=== PATIENT | female | born 1980 | race Caucasian/White ===

== ENCOUNTER 2016-11-16 04:52 | Observation (INO) | payer MEDICAID ==
[2016-11-16] MEDS ORDERED: Sodium Chloride 0.9% 1000 ML 1,000 ML IV STA (06:22)
[2016-11-16] MEDS ORDERED: Sodium Chloride 0.9% 1000 ML 1,000 ML ONE (06:27)
[2016-11-16] MEDS ORDERED: Lactated Ringers 1,000 ML IV SCH (07:30)
[2016-11-16 08:51] LABS: COMPLETE URINE MICROSCOPIC? YES; Collection Type CLEAN CATCH
[2016-11-16 08:57] LABS: Bacteria MODERATE /HPF (NEGATIVE); CALCIUM OXALATE CRYSTALS 0-2 /HPF (NEGATIVE); Epithelial Cells MANY /HPF (FEW); Mucus MANY /HPF (NEGATIVE)
[2016-11-16] MEDS ORDERED: Celestone Soluspan 6MG/ML IM SCH (09:30)
--- NOTE | 2016-11-16 10:08 | XRAY ---
Indication: Evaluate cervical length. Comparison: None Limited transvaginal pelvic sonogram was performed to evaluate the cervical length. Cervix is closed and measures 3.05 cm in length.
[2016-11-16 14:27] VITALS: BP 115/63; PULSE 96
== END 2016-11-16 14:40 | disposition home or self-care (01) ==
LOC: OB 04:52
PROVIDERS: ADMIT Family Medicine; ATTEND Family Medicine
DX: Z34.83 Encounter for supervision of other normal pregnancy, third trimester (principal)
CPT/HCPCS: 76815; 80307; 81000; G0378; J0702

== ENCOUNTER 2016-11-20 17:45 | Observation (INO) | payer MEDICAID ==
[2016-11-20 18:06] VITALS: BP 116/75; PULSE 115; O2SAT 97
[2016-11-20 19:34] LABS: BASOPHIL % 0.1 % (0.0-0.4); Eosinophil % 0.8 % (0.00-5.0); Granulocytes % 72.5 % (36.0-66.0); Lymphocytes % 19.3 % (24.0-44.0); Mean Cell Volume 82.8 fl (78-100); Mean Corpuscular Hemoglobin 27.1 pg (26-32); Monocytes % 7.3 % (0.0-12.0); Platelet Count 177 K/mm3 (150-450); Red Blood Count 4.13 M/mm3 (4.1-5.4); Red Cell Distribution Width 20.5 % (11.5-14.0); White Blood Count 7.6 K/mm3 (4.0-10.5)
[2016-11-20 19:41] LABS: Collection Type CLEAN CATCH
[2016-11-20 19:42] LABS: COMPLETE URINE MICROSCOPIC? YES
[2016-11-20 19:43] LABS: Bacteria FEW /HPF (NEGATIVE); Epithelial Cells FEW /HPF (FEW)
[2016-11-20] MEDS ORDERED: Rocephin 1000 MG INJ IM ONE (19:55)
[2016-11-20] MEDS ORDERED: Rocephin 1000 MG INJ ONE (20:01)
[2016-11-20] MEDS ORDERED: XYLOCAINE 1% HCL 20 ML MDV ONE (20:05)
[2016-11-20] MEDS ORDERED: XYLOCAINE 1% HCL 20 ML MDV IJ ONE (20:12)
== END 2016-11-20 20:27 | disposition home or self-care (01) ==
LOC: OB 17:45
PROVIDERS: ADMIT Family Medicine; ATTEND Family Medicine
DX: Z34.83 Encounter for supervision of other normal pregnancy, third trimester (principal)
CPT/HCPCS: 36415; 80307; 81000; 85025; 96372; G0378; J0696

== ENCOUNTER 2016-11-22 10:20 | Observation (INO) | payer MEDICAID ==
[2016-11-22] MEDS ORDERED: Sodium Chloride 0.9% 100 ML IVPB 100 ML IV ONE (10:43)
[2016-11-22 11:10] LABS: Mean Cell Volume 82.7 fl (78-100); Mean Platelet Volume 10.9 fl (6-9.5); Platelet Count 164 K/mm3 (150-450); Red Blood Count 4.51 M/mm3 (4.1-5.4); Red Cell Distribution Width 20.2 % (11.5-14.0); White Blood Count 8.1 K/mm3 (4.0-10.5)
[2016-11-22 11:11] LABS: Mean Corpuscular Hemoglobin 26.3 pg (26-32)
[2016-11-22] MEDS ORDERED: Sodium Chloride 0.9% 1000 ML 1,000 ML IV STA (11:35)
[2016-11-22 11:42] LABS: ALBUMIN 2.7 g/dL (3.4-5.0); ALKALINE PHOSPHATASE 140 U/L (46-116); ANION GAP 12.5 MEQ/L (5-15); BILIRUBIN,TOTAL 0.2 mg/dL (0.2-1.0); BLOOD UREA NITROGEN 6 mg/dL (9-20); CHLORIDE 102 mEq/L (98-107); Carbon Dioxide 22.2 mEq/L (21-32); Glucose 98 MG/DL (70-110); Potassium 3.8 mEq/L (3.5-5.1); SGOT/AST 15 U/L (15-37); SGPT/ALT 16 U/L (12-78); SODIUM 133 mEq/L (136-145); Total Protein 6.8 gm/dL (6.4-8.2)
[2016-11-22 11:54] LABS: BAND 3 % (0.0-2.0); Platelet Estimate NORMAL (NORMAL); Total Cells Counted 100
[2016-11-22] MEDS ORDERED: Sodium Chloride 0.9% 1000 ML 1,000 ML ONE (11:54)
--- NOTE | 2016-11-22 12:02 | XRAY ---
Indication: well-being. Ultrasound biophysical profile study was performed. Comparison: None There is a single viable intrauterine with heart rate 162 bpm. Four-quadrant LEXX is 9.6 cm. Largest amniotic pocket is 2.6 cm. 2 points given for breathing, movements, tone, and qualitative amniotic fluid volume. Impression: Total biophysical profile score is 8 out of 8.
[2016-11-22 12:35] LABS: COMPLETE URINE MICROSCOPIC? YES; Collection Type VOID
[2016-11-22] MEDS: Lactated Ringers 1,000 ML IV SCH ×2 (13:42→20:23)
[2016-11-22 15:13] LABS: Bacteria MODERATE /HPF (NEGATIVE); Epithelial Cells MODERATE /HPF (FEW); WBC 15-25 /HPF (0-5)
[2016-11-22 15:14] LABS: Yeast MODERATE /HPF (NEGATIVE)
[2016-11-22 23:03] VITALS: O2SAT 99
[2016-11-23] MEDS ORDERED: PROCARDIA 10 MG ONE (00:35)
[2016-11-23] MEDS ORDERED: PROCARDIA 10 MG PO ONE (00:36)
[2016-11-23] MEDS: TYLENOL 325 MG PO PRN ×3 (02:21→22:03)
[2016-11-23] MEDS: Lactated Ringers 1,000 ML IV SCH ×2 (06:27→19:47)
[2016-11-23] MEDS: PROCARDIA 10 MG PO SCH ×3 (10:17→22:03)
[2016-11-23 21:05] LABS: 24 HR TOT. PROTEIN CALCULATION 0.156 GM/DAY (0.04-0.15)
[2016-11-24] MEDS: TYLENOL 325 MG PO PRN (04:11)
[2016-11-24 09:24] VITALS: BP 119/70; PULSE 83
--- NOTE | 2016-11-24 16:10 | XRAY ---
Indication: well-being. Two-dimensional OB sonogram performed. Comparison: November 09, 2016. There is again a single viable intrauterine in cephalic presentation. Normal four-chamber heart with heart rate 154 bpm. Normal three-vessel cord and cord insertion previously documented. Visualized portions of the spine, stomach, kidneys, and bladder appear unremarkable. Placenta again anterior without abruption/previa. Cervical length measures 4 cm. BPD measures 8.56 cm corresponding to 33 weeks 4 days. HC measures 31.39 cm corresponding to 33 weeks 5 days. AC measures 29.01 cm corresponding to 34 weeks 1 day. FL measures 6.71 cm corresponding to 32 weeks 6 days. Estimated weight 5 lbs. 1 oz., +/-12 ounces. 17 percentile. LEXX is 9.9 cm. Impression: Again single viable intrauterine with mean gestational age 34 weeks 2 days. There has been progression in the . Fetus now measures 9 days smaller since the previous study.
== END 2016-11-24 09:20 | disposition home or self-care (01) ==
LOC: EEVIPCON 10:20 → OB 10:20
PROVIDERS: ADMIT Family Medicine; ATTEND Family Medicine
DX: Z34.83 Encounter for supervision of other normal pregnancy, third trimester (principal)
CPT/HCPCS: 36415; 76805; 76819; 80053; 80307; 81000; 84156; 84443; 84550; 85025; 87040; 93005; G0378; A9270-GY

== ENCOUNTER 2016-11-28 09:48 | Observation (INO) | payer MEDICAID ==
[2016-11-28] MEDS ORDERED: Lactated Ringers 1,000 ML IV ONE (10:23)
[2016-11-28 11:03] LABS: Collection Type VOID
[2016-11-28 11:04] LABS: COMPLETE URINE MICROSCOPIC? YES; Ph 6.5 (5-6)
[2016-11-28 11:19] LABS: ALBUMIN 2.6 g/dL (3.4-5.0); ALKALINE PHOSPHATASE 152 U/L (46-116); ANION GAP 13.7 MEQ/L (5-15); BILIRUBIN,TOTAL 0.2 mg/dL (0.2-1.0); BLOOD UREA NITROGEN 6 mg/dL (9-20); CHLORIDE 108 mEq/L (98-107); Carbon Dioxide 21.5 mEq/L (21-32); Glucose 103 MG/DL (70-110); Potassium 3.7 mEq/L (3.5-5.1); SGOT/AST 19 U/L (15-37); SGPT/ALT 14 U/L (12-78); SODIUM 140 mEq/L (136-145); Total Protein 6.6 gm/dL (6.4-8.2)
[2016-11-28 11:21] LABS: Bacteria FEW /HPF (NEGATIVE); Epithelial Cells MODERATE /HPF (FEW); Mucus MODERATE /HPF (NEGATIVE)
[2016-11-28 11:27] LABS: Mean Corpuscular Hemoglobin 26.7 pg (26-32); Platelet Count 159 K/mm3 (150-450); Red Cell Distribution Width 18.6 % (11.5-14.0)
[2016-11-28 11:35] VITALS: O2SAT 99
--- NOTE | 2016-11-28 13:34 | XRAY ---
Indication: Flulike symptoms. well-being. Ultrasound biophysical profile study was performed. Comparison: 2016. There is again a single viable intrauterine today with heart rate 147 bpm. Four-quadrant LEXX is 12.8 cm, previously 9.6 cm. Largest amniotic pocket is 3.7 cm. 2 points given for breathing, movements, tone, and qualitative amniotic fluid volume. Impression: Total biophysical profile score is again 8 out of 8.
[2016-11-28 13:50] LABS: BAND 3 % (0.0-2.0); Platelet Estimate NORMAL (NORMAL); Total Cells Counted 100
[2016-11-28] MEDS ORDERED: ROCEPHIN 1 Gm-D5w 50 ml Bag** 1 G/50 ML IVPB IV SCH (15:30)
[2016-11-28] MEDS ORDERED: Zithromax 500 MG/ 250 ML NaCl Premix 250 ML IV SCH (15:45)
[2016-11-28 18:33] VITALS: BP 120/76; PULSE 116
== END 2016-11-28 18:40 | disposition home or self-care (01) ==
LOC: MED SURG 09:48
PROVIDERS: ADMIT Family Medicine; ATTEND Family Medicine
DX: Z34.83 Encounter for supervision of other normal pregnancy, third trimester (principal)
CPT/HCPCS: 36415; 59025; 76819; 80053; 80307; 81000; 85025; 87086; G0378; J0456; J0696

== ENCOUNTER 2016-12-21 00:38 | Inpatient (IN) | payer MEDICAID ==
[2016-12-21] MEDS ORDERED: Pepcid 20 MG VIAL IV SCH (00:45)
[2016-12-21] MEDS ORDERED: BICITRA 30 ML CUP PO SCH (00:45)
[2016-12-21] MEDS ORDERED: Reglan 10 MG/2 ML IV SCH (00:45)
[2016-12-21] MEDS ORDERED: Lactated Ringers 1,000 ML IV SCH ×2 (01:00)
[2016-12-21 01:25] LABS: Mean Cell Volume 81.5 fl (78-100); Mean Corpuscular Hemoglobin 26.8 pg (26-32); Platelet Count 153 K/mm3 (150-450); Red Blood Count 4.66 M/mm3 (4.1-5.4); Red Cell Distribution Width 15.2 % (11.5-14.0); White Blood Count 6.4 K/mm3 (4.0-10.5)
[2016-12-21 01:44] LABS: INR 0.9 (0.8-3.0); PROTIME 10.1 SECONDS (9.95-12.35)
[2016-12-21 01:47] LABS: PTT 24.7 SECONDS (25.3-37.0)
[2016-12-21 03:57] LABS: COMPLETE URINE MICROSCOPIC? NO; Collection Type CLEAN CATCH
[2016-12-21] MEDS ORDERED: KEFZOL 1 GM ONE (07:01)
[2016-12-21] MEDS ORDERED: Lactated Ringers 1,000 ML IV ONE (07:13)
[2016-12-21] MEDS ORDERED: Pitocin 10 UNITS/ML IV ONE (08:00)
[2016-12-21] MEDS ORDERED: BENADRYL 50 MG/ML IV ONE (08:00)
[2016-12-21] MEDS ORDERED: Naropin 0.5% 30 ML VIAL IJ ONE (08:00)
[2016-12-21] MEDS ORDERED: BREVIBLOC 100 MG/10 ML IV ONE (08:00)
[2016-12-21] MEDS ORDERED: DIPRIVAN 200 MG/20 ML IV ONE (08:00)
[2016-12-21] MEDS ORDERED: Versed 2 MG/2 ML Injection IV ONE (08:00)
[2016-12-21] MEDS ORDERED: Ephedrine Sulfate 50 MG/ML IV ONE (08:00)
--- NOTE | 2016-12-21 08:43 | OP ---
SURGERY DATE/TIME: 12/21/2016629 PREOPERATIVE DIAGNOSES: 1) History of traumatic delivery. 2) Term intrauterine . 3) Desires permanent sterilization. POSTOPERATIVE DIAGNOSES: 1) History of traumatic delivery. 2) Term intrauterine . 3) Desires permanent sterilization. PROCEDURE: Primary section. SURGEON: Jean Sheth M.D. ANESTHESIA: Spinal by Jose Alejandro Redmond CRNA. ESTIMATED BLOOD LOSS: 500 cc. IV FLUIDS: 1,800 ml of crystalloid. URINE OUTPUT: 30 cc. DESCRIPTION OF PROCEDURE: After informed written consent was obtained, the patient was taken to the operating room. She underwent spinal anesthesia and was prepped and draped in usual sterile fashion. After adequate level of anesthesia was assessed, a horizontal low transverse skin incision was made by knife and carried down through subcutaneous fat to the level of the fascia. The fascia was nicked n both side of the midline and extended in horizontal fashion using curved Boudreaux scissors. The superior free edge was grasped with Mark clamps and the underlying rectus muscles were dissected free. The same was repeated inferiorly. The peritoneal cavity was opened and a bladder blade was inserted. Bladder flap was created and reflected over the lower uterine segment. Horizontal uterine incision was made knife and carried down to the level of amniotic membranes which were artificially ruptured. A viable female infant with strong cry immediately upon delivery was delivered from the vertex presentation and passed meconium during delivery. Oropharynx and nares were bulb suctioned free and the cord was clamped and cut. Dr. Velásquez then scrubbed to attend to the baby. The uterus was exteriorized and the placenta was removed from the uterine cavity. The uterus was wiped free with lap sponge and then the uterine incision was closed with #1 chromic suture in a running locked fashion. The left fallopian tube was identified and carried down to its fimbrial end. It was grasped with a [place] and a window was made with electrocautery in the mesosalpinx. Proximal and distal segments then were ligated with chromic tie and the interceding tube segment was dissected free with Metzenbaum scissors. Free edge was then cauterized with electrocautery on both ends. The same was repeated on the right side with good hemostasis and no complications. Posterior cul-de-sac was wiped free of blood and clot. The uterus was returned to the peritoneal cavity. Lateral gutters were wiped free of blood and clot and the uterine incision was noted to be hemostatic with good closure. The fascial layer was closed with 0 Vicryl in running fashion with good closure and good hemostasis. The subcutaneous fat was irrigated with warm sterile saline. Any areas of bleeding were cauterized with electrocautery. Finally, the skin layer was closed 4-0 undyed Vicryl in running subcuticular fashion. Steri-Strips and occlusive dressing were placed over the incision. The patient was transferred to recovery in excellent condition.
[2016-12-21] MEDS: NORCO 5/325 MG PO PRN ×3 (09:32→20:55)
[2016-12-21] MEDS ORDERED: TYLENOL EXTRA STRENGTH 500 MG PO PRN (09:35)
[2016-12-21] MEDS ORDERED: Adacel Vial IM ONE (09:35)
[2016-12-21] MEDS ORDERED: M-M-R II Vaccine With Diluent SQ ONE (09:35)
[2016-12-21] MEDS ORDERED: LANSINOH 40 GM TOP PRN (09:35)
[2016-12-21] MEDS ORDERED: Ambien 10 MG PO PRN (09:35)
[2016-12-21 11:30] LABS: Collection Type CATH
[2016-12-21 11:31] LABS: COMPLETE URINE MICROSCOPIC? NO
[2016-12-21] MEDS: Dextrose 5%-Lr IV Solution 1000 ML 1,000 ML IV SCH ×2 (12:56→20:55)
[2016-12-21] MEDS: Colace 100 MG PO SCH (20:56)
[2016-12-21] MEDS: Mylicon 80MG PO PRN (20:56)
[2016-12-21] MEDS: MOTRIN 400 MG PO PRN (23:44)
[2016-12-22] MEDS: Mylicon 80MG PO PRN (00:16)
[2016-12-22] MEDS: NORCO 5/325 MG PO PRN ×5 (01:27→20:23)
[2016-12-22 05:46] LABS: Mean Platelet Volume 11.7 fl (6-9.5); Platelet Count 115 K/mm3 (150-450); Red Blood Count 3.13 M/mm3 (4.1-5.4); White Blood Count 9.1 K/mm3 (4.0-10.5)
[2016-12-22 05:58] LABS: Mean Corpuscular Hemoglobin 27.1 pg (26-32)
[2016-12-22 06:45] LABS: Total Cells Counted 100
[2016-12-22 06:46] LABS: ANISOCYTOSIS 1+; Platelet Estimate NORMAL (NORMAL); Poikilocytosis 1+
[2016-12-22] MEDS: FERREX 150 PO SCH ×2 (10:07→10:13)
[2016-12-22] MEDS: Colace 100 MG PO SCH ×2 (10:13→21:14)
[2016-12-22 11:51] VITALS: O2SAT 96
[2016-12-23] MEDS: MOTRIN 400 MG PO PRN (01:10)
[2016-12-23 05:42] VITALS: BP 127/70; PULSE 105
[2016-12-23 06:19] LABS: BASOPHIL % 0.1 % (0.0-0.4); Eosinophil % 1.8 % (0.00-5.0); Granulocytes % 75.4 % (36.0-66.0); Lymphocytes % 17.9 % (24.0-44.0); Mean Cell Volume 84.5 fl (78-100); Mean Corpuscular Hemoglobin 27.1 pg (26-32); Mean Platelet Volume 11.5 fl (6-9.5); Monocytes % 4.8 % (0.0-12.0); Platelet Count 134 K/mm3 (150-450); Red Blood Count 3.17 M/mm3 (4.1-5.4); White Blood Count 8.2 K/mm3 (4.0-10.5)
--- NOTE | 2016-12-23 06:44 | PCM.DS ---
Discharge Summary Date of Admission: 12/21/16 00:38 Admitting Physician: BREEZY LION Consults: Consults on Case 12/21/16 00:43 Notify Anesthesia Provider ROUTINE Notify Physician OF ADMISSION 12/21/16 09:36 Notify Physician ROUTINE Primary Care Provider: BREEZY LION Allergies Allergies codeine Allergy (Severe, Verified 12/21/16 02:41) elevated HR, sob, chest pain morphine Allergy (Severe, Verified 12/21/16 02:41) elevated HR, sob, chest pain oxycodone Allergy (Severe, Verified 12/21/16 02:41) elevated HR, sob, chest pain adhesive tape Allergy (Intermediate, Verified 12/21/16 02:41) rash/hives- pt reports paper tape is ok hornet venom Allergy (Verified 12/21/16 02:41) Hospital Summary - Hospital Course Hospital Course: had primary and BTL at term for hx traumatic delivery. no complications , cps is involved and ok'd baby to go home with mother. hgb 8.6 on discharge - Vitals & Intake/Output Vital Signs: Vital Signs Temperature 98.1 F 12/23/16 02:00 Pulse Rate 105 H 12/23/16 02:00 Respiratory Rate 18 12/23/16 02:00 Blood Pressure 127/70 12/23/16 02:00 O2 Sat by Pulse Oximetry 96 12/22/16 14:00 Intake & Output: Intake & Output 12/20/16 12/21/16 12/22/16 12/23/16 11:59 11:59 11:59 11:59 Intake Total 2536 Output Total 625 Balance 1911 Weight 71.214 kg - Lab Result Diagrams: 12/23/16 05:10 Lab Results-Last 24 Hrs: Lab Results-Last 24 Hours 12/22/16 12/23/16 Range/Units 05:15 05:10 WBC 9.1 8.2 (4.0-10.5) K/mm3 RBC 3.13 L 3.17 L (4.1-5.4) M/mm3 Hgb 8.5 L 8.6 L (12.0-16.0) gm/dl Hct 26.3 L 26.8 L (35-47) % MCV 84.0 84.5 (78-100) fl MCH 27.1 27.1 (26-32) pg MCHC 32.3 32.1 (32-36) g/dl RDW 15.0 H 15.0 H (11.5-14.0) % Plt Count 115 L 134 L (150-450) K/mm3 MPV 11.7 H 11.5 H (6-9.5) fl Gran % 75.4 H (36.0-66.0) % Lymphocytes % 17.9 L (24.0-44.0) % Monocytes % 4.8 (0.0-12.0) % Eosinophils % 1.8 (0.00-5.0) % Basophils % 0.1 (0.0-0.4) % Segmented Neutrophils 89 H (36.0-66.0) % Lymphocytes (Manual) 8 L (24-44) % Monocytes (Manual) 3 (0.0-12.0) % Basophils # 0.01 (0-0.4) Platelet Estimate NORMAL (NORMAL) Poikilocytosis 1+ Anisocytosis 1+ Micro Results-Entire Visit: Microbiology 12/21/16 06:43 Urine Culture - Preliminary Urine, Catheterized NO GROWTH TO DATE Discharge Exam General Appearance: no apparent distress, alert Respiratory Exam: normal breath sounds, lungs clear, No respiratory distress Cardiovascular Exam: regular rate/rhythm, normal heart sounds Gastrointestinal/Abdomen Exam: soft, other (incision c/d/i), No tenderness, No mass Extremity Exam: normal inspection, normal range of motion Final Diagnosis/Problem List - Final Discharge Diagnosis/Problem (1) delivery delivered Current Visit: Yes Status: Acute (2) Tubal ligation status Current Visit: Yes Status: Acute - Discharge Disposition: Home, Self-Care Condition: Stable Prescriptions: New Breast Pump 1 each UD #1 each Continue Vits W-Ca,Fe,FA(<1Mg) [] 1 tablet PO DAILY Docusate Sodium 100 mg [Colace 100 MG] 100 mg PO DAILY Ferrous Sulfate 325 mg PO DAILY Follow up with: BREEZY LION [Primary Care Provider] - 1 Week
== END 2016-12-23 09:50 | disposition home or self-care (01) | DRG 766 ==
LOC: EEVIPCON 00:38 → OB 00:38
PROVIDERS: ADMIT Family Medicine; ATTEND Family Medicine
PROC: 10D00Z1 Extraction of Products of Conception, Low, Open Approach (ICD-10-PCS; principal; 2016-12-21)
PROC: 0UL70ZZ Occlusion of Bilateral Fallopian Tubes, Open Approach (ICD-10-PCS; 2016-12-21)
DX: O82 Encounter for cesarean delivery without indication (principal); Z3A.39 39 weeks gestation of pregnancy; Z37.0 Single live birth; Z30.2 Encounter for sterilization
CPT/HCPCS: 01961; 36415; 64425; 76942; 80307; 81002; 85025; 85027; 85610; 85730; 86850; 86900; 86901; 87086; 88302; 90471; 90472; 90707; 90715; 94799; J0690; J1200; J2250; J2590; J2704; J2795; A9270-GY

== ENCOUNTER 2016-12-25 12:38 | Observation (INO) | payer MEDICAID ==
[2016-12-25] MEDS ORDERED: Sodium Chloride 0.9% 1000 ML 1,000 ML IV SCH (13:45)
[2016-12-25 14:08] LABS: ANION GAP 15.5 MEQ/L (5-15); BLOOD UREA NITROGEN 6 mg/dL (9-20); CHLORIDE 107 mEq/L (98-107); Carbon Dioxide 23.8 mEq/L (21-32); Glucose 107 MG/DL (70-110); Potassium 3.4 mEq/L (3.5-5.1); SODIUM 143 mEq/L (136-145)
[2016-12-25 14:19] LABS: BASOPHIL % 0.2 % (0.0-0.4); Eosinophil % 1.2 % (0.00-5.0); Lymphocytes % 26.1 % (24.0-44.0); Mean Cell Volume 84.2 fl (78-100); Mean Corpuscular Hemoglobin 26.6 pg (26-32); Mean Platelet Volume 11.4 fl (6-9.5); Monocytes % 4.5 % (0.0-12.0); Platelet Count 227 K/mm3 (150-450); Red Blood Count 3.42 M/mm3 (4.1-5.4); Red Cell Distribution Width 14.7 % (11.5-14.0); White Blood Count 5.1 K/mm3 (4.0-10.5)
[2016-12-25] MEDS ORDERED: PATIENT OWN MEDICATION TOP PRN (14:38)
[2016-12-25] MEDS ORDERED: BREAST PUMP MC SCH (14:45)
[2016-12-25 17:05] VITALS: BP 120/78; PULSE 101; O2SAT 98
--- NOTE | 2016-12-25 18:12 | PCM.SSS ---
History of Present Illness - Chief Complaint Chief Complaint: TACHYCARDIA History of Present Illness: is a 36 year old female who came in for regular OB follow up in the labor room and was found to have a HR of 163. She had just walked in from the outside carrying the baby in the car seat. Denies any fever. Feeling well. Livier po. - Review of Systems Abdominal/Gastrointestinal: Other (incision from c/s) Psychological: Anxiety All Other Systems: Reviewed and Negative Medications & Allergies Home Medications: Home Medication List Docusate Sodium 100 mg [Colace 100 MG] 100 mg PO DAILY 11/16/16 [History Confirmed 12/25/16] Vits W-Ca,Fe,FA(<1Mg) [] 1 tablet PO DAILY 11/16/16 [History Confirmed 12/25/16] Ferrous Sulfate 325 mg PO DAILY 12/21/16 [History Confirmed 12/25/16] Breast Pump 1 each UD #1 each 12/22/16 [Rx Confirmed 12/25/16] Allergies/Adverse Reactions: Allergies Allergy/AdvReac Type Severity Reaction Status Date / Time codeine Allergy Severe Verified 12/25/16 12:47 morphine Allergy Severe Verified 12/25/16 12:47 oxycodone Allergy Severe Verified 12/25/16 12:47 adhesive tape Allergy Intermediate Verified 12/25/16 12:47 hornet venom Allergy Verified 12/25/16 12:47 - Past Medical History Past Medical History: Yes Neurological History: No Pertinent History ENT History: No Pertinent History Cardiac History: No Pertinent History Respiratory History: No Pertinent History Endocrine Medical History: No Pertinent History GI Medical History: No Pertinent History History: No Pertinent History Pyscho-Social History: No Pertinent History Reproductive Disorders: No Pertinent History Comment: Allergies - Female History Are you now?: No - Past Surgical History Past Surgical History: Yes Neuro Surgical History: No Pertinent History Cardiac History: No Pertinent History Respiratory Surgery: No Pertinent History GI Surgical History: No Pertinent History Genitourinary Surgical Hx: No Pertinent History Musculskeletal Surgical Hx: No Pertinent History Female Surgical History: No Pertinent History Other Surgical History: Tubes in ear x2, epidural - Social History Smoking Status: Never smoker How long have you smoked: Couple yea Exposure to second hand smoke: No Alcohol: None Drug Use: none - Physical Exam Vital Signs: Vital Signs - 24 hr Temp Pulse Resp BP Pulse Ox 12/25/16 16:00 98.2 F 101 H 18 120/78 98 12/25/16 12:52 97.8 F 107 H 18 116/73 97 General Appearance: no apparent distress, other (up walking with baby) Neurologic Exam: alert, oriented x 3, cooperative Eye Exam: eyes nml inspection Neck Exam: normal inspection Respiratory Exam: normal breath sounds, lungs clear, No crackles/rales, No rhonchi, No wheezing Cardiovascular Exam: normal heart sounds, tachycardia (reg rhythm) Gastrointestinal/Abdomen Exam: soft, other (incision c/d/i. fundus firm under umbilicus), No tenderness Back Exam: normal inspection Extremity Exam: No pedal edema, No swelling Skin Exam: normal color, warm, dry Results - Labs Lab/Micro Results: Lab Results-Last 24 Hours 12/25/16 12/25/16 Range/Units 13:40 13:40 WBC 5.1 (4.0-10.5) K/mm3 RBC 3.42 L (4.1-5.4) M/mm3 Hgb 9.1 L (12.0-16.0) gm/dl Hct 28.8 L (35-47) % MCV 84.2 (78-100) fl MCH 26.6 (26-32) pg MCHC 31.6 L (32-36) g/dl RDW 14.7 H (11.5-14.0) % Plt Count 227 (150-450) K/mm3 MPV 11.4 H (6-9.5) fl Gran % 68.0 H (36.0-66.0) % Lymphocytes % 26.1 (24.0-44.0) % Monocytes % 4.5 (0.0-12.0) % Eosinophils % 1.2 (0.00-5.0) % Basophils % 0.2 (0.0-0.4) % Basophils # 0.01 (0-0.4) Sodium 143 (136-145) mEq/L Potassium 3.4 L (3.5-5.1) mEq/L Chloride 107 (98-107) mEq/L Carbon Dioxide 23.8 (21-32) mEq/L Anion Gap 15.5 H (5-15) MEQ/L BUN 6 L (9-20) mg/dL Creatinine 0.67 (0.55-1.30) mg/dl Estimated GFR > 60 ML/MIN Glucose 107 (70-110) MG/DL Calcium 8.5 (8.5-10.1) mg/dL Assessment/Plan (1) Tachycardia Current Visit: Yes Status: Acute Assessment & Plan: Likely just due to over exertion. Rest at home! Check UA/ urine tox before discharge. Code(s): R00.0 - TACHYCARDIA, UNSPECIFIED (2) delivery delivered Current Visit: No Status: Acute Assessment & Plan: appears to be doing well. nontender on exam. no elevated WBC. Code(s): O82 - ENCOUNTER FOR DELIVERY WITHOUT INDICATION (3) Anemia Current Visit: Yes Status: Acute Qualifiers: Iron deficiency anemia type: unspecified iron deficiency Assessment & Plan: taking iron. check in 1-2 months. Code(s): D64.9 - ANEMIA, UNSPECIFIED Hospital Summary - Hospital Course Hospital Course: Pt admitted with tachycardia. It resolved by the time of her admission (HR around 100). She was given 1 L NS bolus. Her labs were without acute findings. She did have anemia, hgb of 9.9 and is taking FeSO4 325 mg 1 po daily at home. Tachycardia likely just reactive due to walking while carrying the baby. Discussed the importance of rest and following weight restrictions. Will d/c pt home. F/u in office 1wk post . - Vitals & Intake/Output Vital Signs: Vital Signs Temperature 98.2 F 12/25/16 16:00 Pulse Rate 101 H 12/25/16 16:00 Respiratory Rate 18 12/25/16 16:00 Blood Pressure 120/78 12/25/16 16:00 O2 Sat by Pulse Oximetry 98 12/25/16 16:00 Intake & Output: Intake & Output 12/23/16 12/24/16 12/25/16 12/26/16 11:59 11:59 11:59 11:59 Intake Total 420 Balance 420 Weight 62.006 kg - Lab Result Diagrams: 12/25/16 13:40 12/25/16 13:40 Lab Results-Last 24 Hrs: Lab Results-Last 24 Hours 12/25/16 12/25/16 Range/Units 13:40 13:40 WBC 5.1 (4.0-10.5) K/mm3 RBC 3.42 L (4.1-5.4) M/mm3 Hgb 9.1 L (12.0-16.0) gm/dl Hct 28.8 L (35-47) % MCV 84.2 (78-100) fl MCH 26.6 (26-32) pg MCHC 31.6 L (32-36) g/dl RDW 14.7 H (11.5-14.0) % Plt Count 227 (150-450) K/mm3 MPV 11.4 H (6-9.5) fl Gran % 68.0 H (36.0-66.0) % Lymphocytes % 26.1 (24.0-44.0) % Monocytes % 4.5 (0.0-12.0) % Eosinophils % 1.2 (0.00-5.0) % Basophils % 0.2 (0.0-0.4) % Basophils # 0.01 (0-0.4) Sodium 143 (136-145) mEq/L Potassium 3.4 L (3.5-5.1) mEq/L Chloride 107 (98-107) mEq/L Carbon Dioxide 23.8 (21-32) mEq/L Anion Gap 15.5 H (5-15) MEQ/L BUN 6 L (9-20) mg/dL Creatinine 0.67 (0.55-1.30) mg/dl Estimated GFR > 60 ML/MIN Glucose 107 (70-110) MG/DL Calcium 8.5 (8.5-10.1) mg/dL - Discharge Disposition: Home, Self-Care Condition: Stable Prescriptions: Continue Vits W-Ca,Fe,FA(<1Mg) [] 1 tablet PO DAILY Docusate Sodium 100 mg [Colace 100 MG] 100 mg PO DAILY Ferrous Sulfate 325 mg PO DAILY Breast Pump 1 each UD #1 each
[2016-12-25 22:31] LABS: COMPLETE URINE MICROSCOPIC? YES; Collection Type CLEAN CATCH
[2016-12-25 22:32] LABS: Bacteria FEW /HPF (NEGATIVE); Epithelial Cells FEW /HPF (FEW); Mucus SLIGHT /HPF (NEGATIVE)
[2016-12-26] MEDS ORDERED: THERAGRAN MULTIVITAMIN PO SCH (10:00)
[2016-12-26] MEDS ORDERED: PRENATAL VITS W CA FE FA PO SCH (10:00)
[2016-12-26] MEDS ORDERED: FEOSOL 325 MG PO SCH (10:00)
[2016-12-26] MEDS ORDERED: Colace 100 MG PO SCH (10:00)
== END 2016-12-25 19:20 | disposition home or self-care (01) ==
LOC: MED SURG 12:38
PROVIDERS: ADMIT Family Medicine; ATTEND Family Medicine
DX: O90.89 Other complications of the puerperium, not elsewhere classified (principal); R00.0 Tachycardia, unspecified; O90.81 Anemia of the puerperium
CPT/HCPCS: 36415; 80048; 80307; 81000; 85025; 87086; G0378